=== PATIENT | female | born 1960 ===

== ENCOUNTER 2019-08-21 06:17 | Day surgery (SDC) | payer OTHER ==
[~2019-08-21 06:17] MED LIST: SYNTHROID75 MCG PO
[2019-08-21] MEDS ORDERED: PERCOCET 5-3251 EACH PO (14:43)
== END 2019-08-21 17:45 | disposition home or self-care (01) ==
LOC: CIR.AMB 06:17
DX: E06.3 Autoimmune thyroiditis (principal); D35.1 Benign neoplasm of parathyroid gland